=== PATIENT | female | born 1970 | race Caucasian/White ===

== ENCOUNTER 2017-07-06 17:32 | Emergency (ER) | payer MEDICAID ==
[~2017-07-06] VITALS: Ht 152.4 cm; Wt 72.5 kg
[2017-07-06 17:47] VITALS: Ht 152.4 cm; Wt 72.5 kg
[2017-07-06 20:50] LABS: BASOPHILS % 0.2 % (0.0-2.0); EOSINOPHILS % 0.6 % (0.0-7.0); HEMATOCRIT 35.3 % (37.0-47.0); HEMOGLOBIN 12.3 g/dl (12.0-16.0); LYMPHOCYTES # 1.9 10^3/ul (0.8-2.9); LYMPHOCYTES % 36.3 % (15.0-51.0); MEAN CORPUSCULAR HEMOGLOBIN 30.3 pg (29.0-33.0); MEAN CORPUSCULAR HGB CONC 34.8 g/dl (32.0-37.0); MEAN CORPUSCULAR VOLUME 86.9 fl (82.0-101.0); MEAN PLATELET VOLUME 11.5 fl (7.4-10.4); MONOCYTE # 0.4 10^3/ul (0.3-0.9); NEUTROPHILS % 54.7 % (39.0-77.0); PLATELET COUNT 143 10^3/UL (140-415); RED BLOOD COUNT 4.06 10^6/ul (4.20-5.40); RED CELL DISTRIBUTION WIDTH 12.3 % (11.5-14.5); WHITE BLOOD COUNT 5.4 10^3/ul (4.8-10.8)
[2017-07-06 21:01] LABS: ADD UMIC YES; UR ASCORBIC ACID 20 mg/dL (NEGATIVE); UR BILIRUBIN (Dip) NEGATIVE (NEGATIVE); UR BLOOD (Dip) 3+ mg/dL (NEGATIVE); UR CLARITY SLIGHTLY CLOUDY (CLEAR); UR COLOR YELLOW (YELLOW); UR GLUCOSE (Dip) NEGATIVE (NEGATIVE); UR KETONES (Dip) NEGATIVE (NEGATIVE); UR LEUKOCYTE ESTERASE (Dip) TRACE Leu/ul (NEGATIVE); UR NITRITE (Dip) NEGATIVE (NEGATIVE); UR RBC 3 /HPF (0-5); UR SPECIFIC GRAVITY (Dip) 1.021 (1.003-1.030); UR SQUAMOUS EPITHELIAL CELL FEW /HPF (FEW); UR TOTAL PROTEIN (Dip) NEGATIVE (NEGATIVE); UR UROBILINOGEN (Dip) NEGATIVE (NEGATIVE)
[2017-07-06 21:12] LABS: ALBUMIN 4.2 g/dl (3.3-4.9); ALBUMIN/GLOBULIN RATIO 1.16; BILIRUBIN,INDIRECT 0.3 mg/dl (0-1.1); BILIRUBIN,TOTAL 0.3 mg/dl (0.2-1.3); CREATININE 0.77 mg/dl (0.44-1.00); POTASSIUM 3.8 mmol/L (3.5-5.1); TOTAL PROTEIN 7.8 g/dl (6.1-8.1)
--- NOTE | 2017-07-06 22:22 | RADRPT ---
PROCEDURE: Pelvic ultrasound. CLINICAL INDICATION: Pelvic pain TECHNIQUE: Gilbert scale, color doppler, spectral doppler ultrasound of the pelvis was performed with transabdominal and transvaginal transducers. COMPARISON: No prior studies are available for comparison. FINDINGS: Uterus: Position: Anteverted. Normal myometrial echogenicity. Normal appearance of the endometrium. Ovaries: 4.6 cm dominant follicle of the right ovary with preserved blood flow. Left ovary not identified. Free fluid: None. Measurements: Endometrium (cm): 0.7 Uterus (cm): 9.1 x 4.3 x 5.2 Right ovary (cm): 4.7 x 3.3 x 4.5 IMPRESSION: Normal appearance of the uterus. 4.6 cm dominant follicle of the right ovary. Left ovary not identified. RPTAT: AADD .Yair Delgado MD, MD Date Time Electronically viewed and signed by .Yair Delgado MD, on 07/06/2017 22:22 .B/
[2017-07-06] MEDS ORDERED: NAPR-260 PO (22:27)
[2017-07-06 22:40] VITALS: BP 111/68; PULSE 72; RESP 16; TEMP 98.6
--- NOTE | 2017-07-06 23:08 | ERD ---
ER Documentation Chief Complaint Date/Time DATE: 07/06/17 TIME: 23:06 Chief Complaint Complains of vag bleed HPI 46 yr old female complaining of pelvic pain with bleeding x 2 days. LNMP was 2 months ago. Patient had heavy bleeding yesterday without clots and only light spotting today. Patient has mild generalized pelvic pain. denies dysuria. has not taken medication for pain ROS All systems reviewed and are negative except as per history of present illness. Medications Home Meds Active Scripts Naproxen* (Naprosyn*) 500 Mg Tablet, 500 MG PO BID Y for PAIN AND/OR INFLAMMATION, #30 TAB Prov:TREVOR VARGAS PA-C 07/06/17 Allergies Allergies: Coded Allergies: No Known Allergy (Unverified , 07/06/17) PMhx/Soc Medical and Surgical Hx: pt denies Medical Hx, pt denies Surgical Hx Hx Alcohol Use: No Hx Substance Use: No Hx Tobacco Use: No Smoking Status: Never smoker Physical Exam Vitals Vital Signs Date Time Temp Pulse Resp B/P Pulse Ox O2 Delivery O2 Flow Rate FiO2 07/06/17 22:40 98.6 72 16 111/68 97 Room Air 07/06/17 17:47 98.6 77 20 108/67 97 Physical Exam GENERAL: The patient is well-appearing, well-nourished, in no acute distress CHEST: Clear to auscultation bilaterally. There are no rales, wheezes or rhonchi. HEART: Regular rate and rhythm. No murmurs, clicks, rubs or gallops. No S3 or S4. ABDOMEN:Soft, nontender and nondistended. Good bowel sounds. No rebound or guarding. No gross peritonitis. No gross organomegaly or masses. No Dove sign or McBurney point tenderness. BACK: No midline or flank tenderness. Result Diagram: 07/06/17203407/06/172034 Results 24 hrs Laboratory Tests Test 07/06/17 20:35 White Blood Count 5.410^3/ul Red Blood Count 4.0610^6/ul Hemoglobin 12.3g/dl Hematocrit 35.3% Mean Corpuscular Volume 86.9fl Mean Corpuscular Hemoglobin 30.3pg Mean Corpuscular Hemoglobin Concent 34.8g/dl Red Cell Distribution Width 12.3% Platelet Count 41793^3/UL Mean Platelet Volume 11.5fl Neutrophils % 54.7% Lymphocytes % 36.3% Monocytes % 8.0% Eosinophils % 0.6% Basophils % 0.2% Nucleated Red Blood Cells % 0.0/100WBC Neutrophils # (Manual) 2.910^3/ul Lymphocytes # 1.910^3/ul Monocytes # 0.410^3/ul Eosinophils # 0.010^3/ul Basophils # 0.010^3/ul Nucleated Red Blood Cells # 0.010^3/ul Urine Color YELLOW Urine Clarity SLIGHTLY CLOUDY Urine pH 5.0 Urine Specific [place] 1.021 Urine Ketones NEGATIVEmg/dL Urine Nitrite NEGATIVEmg/dL Urine Bilirubin NEGATIVEmg/dL Urine Urobilinogen NEGATIVEmg/dL Urine Leukocyte Esterase TRACELeu/ul Urine Microscopic RBC 3/HPF Urine Microscopic WBC 4/HPF Urine Squamous Epithelial Cells FEW/HPF Urine Hemoglobin 3+mg/dL Urine Glucose NEGATIVEmg/dL Urine Total Protein NEGATIVEmg/dl Sodium Level 139mmol/L Potassium Level 3.8mmol/L Chloride Level 107mmol/L Carbon Dioxide Level 23mmol/L Anion Gap 13 Blood Urea Nitrogen 10mg/dl Creatinine 0.77mg/dl Glucose Level 96mg/dl Calcium Level 9.0mg/dl Total Bilirubin 0.3mg/dl Direct Bilirubin 0.00mg/dl Indirect Bilirubin 0.3mg/dl Aspartate Amino Transf (AST/SGOT) 26IU/L Alanine Aminotransferase (ALT/SGPT) 30IU/L Alkaline Phosphatase 68IU/L Total Protein 7.8g/dl Albumin 4.2g/dl Globulin 3.60g/dl Albumin/Globulin Ratio 1.16 Serum HCG, Qualitative NEGATIVE Procedures/MDM DIAGNOSTIC IMAGING REPORT Patient: SHIRLEY MENDEZ : 1970 Age: 46 Sex: F MR #: [id number] DOS: 07/06/172018 Ordering MD: SKY VARGAS PA-C Location: E Room/Bed: PROCEDURE: Pelvic ultrasound. CLINICAL INDICATION: Pelvic pain TECHNIQUE: Gilbert scale, color doppler, spectral doppler ultrasound of the pelvis was performed with transabdominal and transvaginal transducers. COMPARISON: No prior studies are available for comparison. FINDINGS: Uterus: Position: Anteverted. Normal myometrial echogenicity. Normal appearance of the endometrium. Ovaries: 4.6 cm dominant follicle of the right ovary with preserved blood flow. Left ovary not identified. Free fluid: None. Measurements: Endometrium (cm): 0.7 Uterus (cm): 9.1 x 4.3 x 5.2 Right ovary (cm): 4.7 x 3.3 x 4.5 IMPRESSION: Normal appearance of the uterus. 4.6 cm dominant follicle of the right ovary. Left ovary not identified. MDM: I have low suspicion For hemodynamic instability. Patient's hemoglobin and vital signs are stable. I have low suspicion for ectopic as patient's urine is negative. I have low suspicion for pelvic infection or acute abnormality. Patient's ultrasound is within normal limits. Patient will be discharged with pain medication. I have low suspicion for pyelonephritis. I have low suspicion for urinary tract infection. Patient is discharged with strict ER precautions and told to return if symptoms change or worsen. All questions answered at the time of discharge. Departure Diagnosis: Primary Impression: Vaginal bleeding Condition: Stable Patient Instructions: Pelvic Pain, Unknown Cause Referrals: [facility] [address] [facility] [address] [place], [place] [id number] OFFICE FAX ARJUN OLIVERNICA [address] [place], [place] [phone] [facility] [address] [place] [address] FAYE MTZCHOLO [address] [facility], [facility] [address] [address] [address] [address] [place], [place] [phone] [facility] [address] [place], [place] [id number] [address] [facility] [id number] - [address], [facility] [address] [address] [place] [address] [facility]. [address], [facility] [address] [address] [address] [place] [address] Additional Instructions: FOLLOW UP WITH YOUR PRIMARY CARE PHYSICIAN TOMORROW.Return to this facility if you are not improving as expected. TREVOR VARGAS PA-C Jul 06, 2017 23:08
== END 2017-07-06 22:42 | disposition home or self-care (01) ==
LOC: FTE 17:32
DX: N93.8 Other specified abnormal uterine and vaginal bleeding (principal)
CPT/HCPCS: 36415; 76830; 76856; 80053; 81001; 84703; 85025; Z7502